=== PATIENT | male | born 1960 | race Caucasian/White ===

== ENCOUNTER 2019-11-04 13:12 | Outpatient (CLI) | payer BC ==
--- NOTE | 2019-11-04 14:09 | MRI ---
MRI CERVICAL SPINE WITHOUT CONTRAST: HISTORY: Radicular syndrome of upper limbs. Right arm numbness, tingling and weakness.. COMPARISON: None. FINDINGS: Appropriate T1 marrow signal intensity of the cervical vertebra. Cervical spine vertebral body height is maintained. There is no fracture. There is intrinsic T1 and T2 hyperintensity along the left aspect of the T2 and T3 vertebral body, compatible with osseous hemangioma. No significant STIR hyperintensity to suggest vertebral body edema or ligamentous injury. Visualized brain parenchyma, cervicomedullary junction, cervical cord and the upper thoracic cord hav e a normal size and signal intensity. C2-C3: No significant central canal stenosis or significant neural foraminal narrowing. C3-C4: Central disc protrusion with contact upon the thecal sac. Mild loss of disc space height. No s ignificant central canal stenosis. Moderate right neural foraminal narrowing due to uncovertebral hypertrophy. Moderate to severe left neural foramen due to uncovertebral hypertrophy. C4-C5: Broad-based disc-osteophyte complex without significant stenosis of the thecal sac. Mild loss of disc space height. No significant central canal stenosis. Mild bilateral neural foraminal narrowing due to uncovertebral hypertrophy. C5-C6: Broad-based disc-osteophyte complex abuts the thecal sac. There is a small central/right parac entral component. Mild central canal stenosis. Subarachnoid space is maintained. Severe right neural foraminal narrowing due to uncovertebral hypertrophy. Left neural foramen is minimally narrowe d due to uncovertebral hypertrophy. C6-C7: Broad-based disc-osteophyte complex with a central disc bulge. Mild central canal stenosis. Mi ld to moderate right neural foraminal narrowing. Moderate left neural foraminal narrowing due to uncovertebral hypertrophy. C7-T1: No significant central canal stenosis. Neural foramina are patent. IMPRESSION: Degenerative changes of the cervical spine as described above. Significant neural foraminal narrowin g at multiple levels. Severe right neural foraminal narrowing at C5-C6. Moderate left neural foramen at C6-C7. Transcribed Date/Time: 11/04/2019 2:15 PM
== END 2019-11-04 13:13 | disposition home or self-care (01) ==
LOC: BICMRI 13:12
PROVIDERS: ATTEND Orthopaedic Surgery
DX: M47.22 Other spondylosis with radiculopathy, cervical region (principal); M48.02 Spinal stenosis, cervical region
CPT/HCPCS: 72141

== ENCOUNTER 2022-10-21 06:03 | Day surgery (SDC) | payer OTHER ==
[2022-10-20 12:17] VITALS: BMI 31.5
[2022-10-21] MEDS ORDERED: fentaNYL PF 100 MCG/2 ML SYRINGE ONE (06:29)
[2022-10-21] MEDS ORDERED: Propofol 500 MG/50 ML VIAL ONE (06:29)
[2022-10-21] MEDS ORDERED: Sodium Chloride 0.9% 100 ML ONE (06:47)
[2022-10-21] MEDS ORDERED: CEFAZOLIN 2 GM VIAL ONE (06:47)
[2022-10-21] MEDS ORDERED: Midazolam HCl 2 mg/2 ml Vial ONE ×2 (06:47→07:21)
[2022-10-21] MEDS ORDERED: Bupivacaine/Epinephrine 0.25% 30 ML VIAL ONE (06:55)
[2022-10-21] MEDS ORDERED: Dexamethasone 20 MG/5 ML VIAL ONE (07:34)
[2022-10-21] MEDS ORDERED: PROPOFOL 200 MG/20 ML VIAL ONE (07:34)
[2022-10-21] MEDS ORDERED: Ondansetron PF 4 MG/2 ML Vial ONE (07:34)
[2022-10-21] MEDS ORDERED: Phenylephrine 10 MG/ML VIAL ONE (07:34)
[2022-10-21] MEDS ORDERED: Lidocaine 1% (PF) 30 ML VIAL ONE (07:37)
[2022-10-21] MEDS ORDERED: FENTANYL 50 MCG/ML 1 ML VIAL ONE ×2 (09:06→09:32)
[2022-10-21] MEDS ORDERED: traMADol HCl 50 MG TAB ONE ×3 (09:10→09:13)
== END 2022-10-21 09:45 | disposition home or self-care (01) ==
LOC: SDC 06:03
PROVIDERS: ATTEND Surgery
PROC: 0JB70ZZ Excision of Back Subcutaneous Tissue and Fascia, Open Approach (ICD-10-PCS; principal; 2022-10-21)
DX: M79.89 Other specified soft tissue disorders (principal); K21.9 Gastro-esophageal reflux disease without esophagitis; E78.00 Pure hypercholesterolemia, unspecified; I10 Essential (primary) hypertension; E66.9 Obesity, unspecified; Z68.31 Body mass index [BMI] 31.0-31.9, adult; Z86.16 Personal history of COVID-19; Z79.899 Other long term (current) drug therapy
CPT/HCPCS: 88304; J1100; J2001; J2250; J2370; J2405; J2704; J3010; J3490

== ENCOUNTER 2022-12-25 09:17 | Outpatient (CLI) | payer OTHER | END 2022-12-25 09:18 | disposition home or self-care (01) | LOC: TBSIIMAG 09:17 | PROVIDERS: ATTEND Urology | DX: R97.20 Elevated prostate specific antigen [PSA] (principal) | CPT/HCPCS: 72197 ==